=== PATIENT | female | born 1970 | race Caucasian/White ===

== ENCOUNTER 2021-09-04 13:09 | Emergency (ER) | payer MEDICAID ==
[~2021-09-04] VITALS: Ht 157.5 cm; Wt 68.2 kg
[~2021-09-04 13:09] MED LIST: NO HOME MEDS
[2021-09-04 13:18] VITALS: BP 138/71
[2021-09-04] MEDS ORDERED: HYDROcodone/acetaminophen 5mg/325mg tablet PO ONE (15:45)
[2021-09-04] MEDS ORDERED: clindamycin 150mg capsule PO ONE (15:45)
[2021-09-04] MEDS ORDERED: LIDOcaine 1% 30ml preserv. free vial IJ ONE (15:45)
[2021-09-04] MEDS ORDERED: ibuprofen tablet 400 MG TABLET PO ONE (15:45)
[2021-09-04] MEDS ORDERED: IBUP-1986 PO (16:13)
[2021-09-04] MEDS ORDERED: CLIN300C71 PO (16:13)
== END 2021-09-04 16:49 | disposition home or self-care (01) ==
LOC: ER 13:09
DX: K04.7 Periapical abscess without sinus (principal); F32.A Depression, unspecified; F15.10 Other stimulant abuse, uncomplicated; Z79.899 Other long term (current) drug therapy; Z79.2 Long term (current) use of antibiotics
CPT/HCPCS: 64450; 99284